=== PATIENT | female | born 1950 | race Two or more races ===

== ENCOUNTER 2016-11-20 13:02 | Emergency (ER) | payer OTHER ==
[~2016-11-20] VITALS: Ht 154.9 cm; Wt 72.6 kg
[2016-11-20 14:53] VITALS: BP 148/66
[2016-11-20] MEDS ORDERED: methylPREDNISolone SOD SUCC 125 MG/2 ML VL IM ONE (15:15)
[2016-11-20] MEDS ORDERED: KETOROLAC TROMETH 60MG/2ML VIAL IM ONE (15:15)
== END 2016-11-20 16:04 | disposition home or self-care (01) ==
LOC: ER 13:04
DX: M17.12 Unilateral primary osteoarthritis, left knee (principal); E11.9 Type 2 diabetes mellitus without complications; I10 Essential (primary) hypertension
CPT/HCPCS: 96372; 99284; J1885; J2930

== ENCOUNTER 2016-12-21 11:37 | Emergency (ER) | payer OTHER ==
[~2016-12-21 11:37] MED LIST: ASPI325T4 PO; FLUT0.0535 NAS; GLIP-115 PO; LISI10TA6 PO; METF-312 PO; SIMV10TA84 PO
[2016-12-21 12:08] LABS: Basophils # (auto) 0 uL; Basophils % (auto) 0.3 % (0.0-2.0); Eosinophils # (auto) 0 uL; Eosinophils % (auto) 0.3 % (0.0-7.0); Hematocrit 35.4 % (36.0-46.0); Hemoglobin 11.6 g/dL (12.2-16.2); Lymphocytes # (auto) 1.5 uL; Lymphocytes % (auto) 10.8 % (10.0-50.0); Mean Corpuscular Hemoglobin 28.6 pg (28.0-32.0); Mean Corpuscular Hgb Conc. 32.7 g/dL (32.0-36.0); Mean Corpuscular Volume 87.5 fL (80.0-100.0); Mean Platelet Volume 10.7 fL (7.4-10.4); Monocytes # (auto) 0.7 uL; Monocytes % (auto) 4.9 % (0.0-12.0); Neutrophils % (auto) 83.7 % (37.0-80.0); Platelet Count (auto) 234 10^3/uL (140-450); Red Cell Distribution Width 12.9 % (11.6-16.0); SUSPECT VIEW TRANSMISSION; White Blood Cell 14.3 10^3/uL (4.4-10.8)
[2016-12-21] MEDS ORDERED: ASPirin 81 mg TAB PO ONE (12:30)
[2016-12-21 12:31] LABS: Albumin 3.6 g/dL (3.4-5.0); Alkaline Phosphatase 96 U/L (45-117); Anion Gap 12 (5-15); Aspartate Aminotransferase 22 U/L (15-37); BUN/Creatinine Ratio 43.5; Bilirubin, Total 0.5 mg/dL (0.2-1.0); Blood Urea Nitrogen 40 mg/dL (7-18); Calcium 8.4 mg/dL (8.5-10.1); Carbon Dioxide 19 mmol/L (21-32); Chloride 106 mmol/L (98-107); GFR African American 78 mL/min; GFR Non-African American 65 mL/min; Glucose 136 mg/dL (74-106); Magnesium 1.7 mg/dL (1.6-2.6); Potassium 4.1 mmol/L (3.5-5.1); Sodium 137 mmol/L (136-145); Total Protein 6.9 g/dL (6.4-8.2)
[2016-12-21] MEDS ORDERED: cefTRIAXone 1GM/50ML D5W 50 ML IV ONE (15:00)
[2016-12-21 16:55] VITALS: BP 112/64
[2016-12-24] MEDS ORDERED: GLIP-115 PO (16:15)
[2016-12-24] MEDS ORDERED: FAM20T PO (16:15)
== END 2016-12-21 18:08 | disposition home or self-care (01) ==
LOC: ER 11:39
DX: R07.89 Other chest pain (principal); J40 Bronchitis, not specified as acute or chronic; I11.0 Hypertensive heart disease with heart failure; I50.9 Heart failure, unspecified; E78.5 Hyperlipidemia, unspecified; E11.9 Type 2 diabetes mellitus without complications
CPT/HCPCS: 36415; 71020; 80053; 83735; 84484; 85025; 93005; 96365; 99285; J0696

== ENCOUNTER → 2017-04-15 | Outpatient (CLI) | payer OTHER ==
[~2017-04-15] MED LIST changes: -ASPI325T4 PO; +FAM20T PO; -METF-312 PO; +METF-370 PO; -SIMV10TA84 PO
[2017-04-15 10:19] LABS: Basophils # (auto) 0 uL; Basophils % (auto) 0.4 % (0.0-2.0); Eosinophils # (auto) 0.1 uL; Eosinophils % (auto) 2.3 % (0.0-7.0); Hemoglobin 13.7 g/dL (12.2-16.2); Lymphocytes # (auto) 1.2 uL; Lymphocytes % (auto) 19.7 % (10.0-50.0); Mean Corpuscular Hgb Conc. 34.3 g/dL (32.0-36.0); Mean Corpuscular Volume 84.8 fL (80.0-100.0); Mean Platelet Volume 11.5 fL (7.4-10.4); Monocytes # (auto) 0.3 uL; Neutrophils # (auto) 4.5 uL; Neutrophils % (auto) 72.6 % (37.0-80.0); Platelet Count (auto) 151 10^3/uL (140-450); Red Cell Distribution Width 13.8 % (11.6-16.0); White Blood Cell 6.2 10^3/uL (4.4-10.8)
== END | disposition home or self-care (01) ==
LOC: LAB 09:06
PROVIDERS: ATTEND Family Medicine
DX: K92.2 Gastrointestinal hemorrhage, unspecified (principal)
CPT/HCPCS: 36415; 85025

== ENCOUNTER → 2017-05-19 | Outpatient (CLI) | payer OTHER ==
[2017-05-19 11:25] LABS: Basophils # (auto) 0 uL; Basophils % (auto) 0.6 % (0.0-2.0); CONDITION Y; Eosinophils # (auto) 0.1 uL; Eosinophils % (auto) 1.8 % (0.0-7.0); Hematocrit 36.9 % (36.0-46.0); Hemoglobin 12.7 g/dL (12.2-16.2); Lymphocytes # (auto) 1.3 uL; Lymphocytes % (auto) 21.1 % (10.0-50.0); Mean Corpuscular Hemoglobin 29.4 pg (28.0-32.0); Mean Corpuscular Hgb Conc. 34.5 g/dL (32.0-36.0); Mean Corpuscular Volume 85.2 fL (80.0-100.0); Mean Platelet Volume 10.5 fL (7.4-10.4); Monocytes # (auto) 0.4 uL; Monocytes % (auto) 6.3 % (0.0-12.0); Neutrophils # (auto) 4.2 uL; Neutrophils % (auto) 70.2 % (37.0-80.0); Platelet Count (auto) 149 10^3/uL (140-450); Red Cell Distribution Width 14.5 % (11.6-16.0)
[2017-05-19 11:36] LABS: Urine Bilirubin Negative (Negative); Urine Blood Negative /uL (Negative); Urine Color Yellow (Yellow); Urine Glucose Normal (Normal); Urine Ketone Negative (Negative); Urine Nitrite Negative (Negative); Urine RBC 1 /hpf (0 - 4); Urine Squamous Epithelial Cell FEW /hpf (<5); Urine Urobilinogen Normal (Negative)
[2017-05-19 11:41] LABS: Albumin 3.8 g/dL (3.4-5.0); BUN/Creatinine Ratio 16.1; Bilirubin, Total 0.5 mg/dL (0.2-1.0); Calcium 9.2 mg/dL (8.5-10.1); Total Protein 7.4 g/dL (6.4-8.2)
== END | disposition home or self-care (01) ==
LOC: LAB 10:48
PROVIDERS: ATTEND Family Medicine
DX: E11.40 Type 2 diabetes mellitus with diabetic neuropathy, unspecified (principal)
CPT/HCPCS: 36415; 80053; 80061; 81001; 82043; 82306; 82607; 83036; 84443; 85025

== ENCOUNTER 2017-08-30 14:37 | Inpatient (IN) | payer OTHER ==
[~2017-08-30] VITALS: Ht 157.5 cm; Wt 89.0 kg
[2017-08-30 15:17] LABS: Basophils # (auto) 0 uL; Basophils % (auto) 0.5 % (0.0-2.0); Eosinophils # (auto) 0.1 uL; Eosinophils % (auto) 1.7 % (0.0-7.0); Hematocrit 39.6 % (36.0-46.0); Hemoglobin 13.3 g/dL (12.2-16.2); Lymphocytes # (auto) 1.4 uL; Lymphocytes % (auto) 18.7 % (10.0-50.0); Mean Corpuscular Hemoglobin 29.5 pg (28.0-32.0); Mean Corpuscular Hgb Conc. 33.7 g/dL (32.0-36.0); Mean Corpuscular Volume 87.6 fL (80.0-100.0); Monocytes # (auto) 0.4 uL; Monocytes % (auto) 6.2 % (0.0-12.0); Neutrophils # (auto) 5.3 uL; Neutrophils % (auto) 72.9 % (37.0-80.0); Nucleated Red Blood Cells % 0.1 %; Platelet Count (auto) 136 10^3/uL (140-450); Red Blood Cells 4.52 10^6/uL (4.0-5.20); Red Cell Distribution Width 12.7 % (11.8-14.3); White Blood Cell 7.2 10^3/uL (4.4-10.8)
[2017-08-30 15:28] LABS: INR 0.97 (0.9-1.15); Partial Thromboplastin Time 26.3 sec (22.64-33.71); Prothrombin Time 10.6 sec (9.37-12.3)
[2017-08-30 15:51] LABS: Alanine Aminotransferase 47 U/L (13-56); Albumin 4.1 g/dL (3.4-5.0); Alkaline Phosphatase 113 U/L (45-117); Anion Gap 13 (5-15); Aspartate Aminotransferase 25 U/L (15-37); BUN/Creatinine Ratio 14.3; Bilirubin, Total 0.4 mg/dL (0.2-1.0); Blood Urea Nitrogen 13 mg/dL (7-18); Calcium 8.9 mg/dL (8.5-10.1); Carbon Dioxide 21 mmol/L (21-32); Chloride 105 mmol/L (98-107); GFR African American 79 mL/min; GFR Non-African American 65 mL/min; Glucose 190 mg/dL (74-106); Magnesium 1.9 mg/dL (1.6-2.6); Potassium 3.9 mmol/L (3.5-5.1); Sodium 139 mmol/L (136-145); Total Protein 7.9 g/dL (6.4-8.2)
[2017-08-31] MEDS ORDERED: HYDROcodone-ACET 5/325MG TAB PO PRN (06:45)
[2017-08-31] MEDS ORDERED: ACETAMINOPHEN 325 MG TAB PO PRN (06:45)
[2017-08-31] MEDS ORDERED: NITROGLYCERIN 0.4 MG SL TAB SL PRN (06:45)
[2017-08-31] MEDS ORDERED: ONDANSETRON HCL 4 MG/2 ML VIAL IV PRN (06:45)
[2017-08-31] MEDS ORDERED: DOCUSATE SOD 100 MG CAP PO PRN (06:45)
[2017-08-31] MEDS ORDERED: TEMAZEPAM 15 MG CAP PO PRN (06:45)
[2017-08-31] MEDS ORDERED: MORPHINE SULFATE 10 MG/ML INJ 1ML SDV IV PRN (06:45)
[2017-08-31] MEDS ORDERED: DEXTROSE (50%) 50ML SYRG IV PRN (06:45)
[2017-08-31] MEDS: glipiZIDE 5 MG TAB PO SCH ×2 (09:04→17:49)
[2017-08-31 10:25] VITALS: BP 142/76
[2017-08-31 10:48] VITALS: BP 142/76
[2017-08-31] MEDS: ASPirin 81 mg TAB PO SCH (11:59)
[2017-08-31] MEDS: ENOXAPARIN SOD 40 MG/0.4 ML SYRINGE SC SCH (11:59)
[2017-08-31] MEDS: FUROSEMIDE 20 MG TAB PO SCH (12:00)
[2017-08-31] MEDS: CARVEDILOL 3.125 MG TAB PO SCH ×2 (12:00→21:57)
[2017-08-31] MEDS: InsuLIN REG 1unit/0.01ml Soln (100units/ml) SC SCH ×3 (12:00→23:35)
[2017-08-31] MEDS: FAMOTIDINE 20 MG TAB PO SCH ×2 (12:00→21:57)
[2017-08-31] MEDS: ACCU-CHEK COMFORT CURVE STRIP VI SCH ×3 (12:01→23:35)
[2017-08-31] MEDS: LISINOPRIL 10 MG TAB PO SCH (12:01)
[2017-08-31 16:49] VITALS: BP 99/61
[2017-08-31 22:00] VITALS: BP 110/74
[2017-08-31] MEDS ORDERED: ATORVASTATIN 20 MG TAB PO SCH (22:00)
[2017-08-31] MEDS ORDERED: PATIENTS OWN MEDICATION (simvastatin 10 MG) PO SCH (22:00)
[2017-09-01 05:00] VITALS: BP 111/60
[2017-09-01] MEDS: InsuLIN REG 1unit/0.01ml Soln (100units/ml) SC SCH ×2 (06:28→12:00)
[2017-09-01] MEDS: ACCU-CHEK COMFORT CURVE STRIP VI SCH ×2 (06:28→12:00)
[2017-09-01] MEDS: glipiZIDE 5 MG TAB PO SCH (06:28)
[2017-09-01 07:16] LABS: Basophils # (auto) 0 uL; Basophils % (auto) 0.6 % (0.0-2.0); Eosinophils # (auto) 0.1 uL; Eosinophils % (auto) 2.1 % (0.0-7.0); Hematocrit 41.7 % (36.0-46.0); Hemoglobin 14.1 g/dL (12.2-16.2); Lymphocytes # (auto) 1.4 uL; Lymphocytes % (auto) 22.5 % (10.0-50.0); Mean Corpuscular Hemoglobin 29.6 pg (28.0-32.0); Mean Corpuscular Hgb Conc. 33.7 g/dL (32.0-36.0); Mean Corpuscular Volume 87.7 fL (80.0-100.0); Monocytes # (auto) 0.5 uL; Neutrophils # (auto) 4.2 uL; Neutrophils % (auto) 66.8 % (37.0-80.0); Nucleated Red Blood Cells % 0.1 %; Platelet Count (auto) 120 10^3/uL (140-450); Red Blood Cells 4.75 10^6/uL (4.0-5.20); Red Cell Distribution Width 12.8 % (11.8-14.3); White Blood Cell 6.2 10^3/uL (4.4-10.8)
[2017-09-01 07:33] LABS: Alanine Aminotransferase 41 U/L (13-56); Albumin 3.8 g/dL (3.4-5.0); Alkaline Phosphatase 108 U/L (45-117); Anion Gap 10 (5-15); Aspartate Aminotransferase 18 U/L (15-37); BUN/Creatinine Ratio 23.6; Bilirubin, Total 0.6 mg/dL (0.2-1.0); Blood Urea Nitrogen 17 mg/dL (7-18); Carbon Dioxide 22 mmol/L (21-32); Chloride 106 mmol/L (98-107); GFR African American 104 mL/min; GFR Non-African American 86 mL/min; Glucose 134 mg/dL (74-106); Potassium 3.9 mmol/L (3.5-5.1); Sodium 138 mmol/L (136-145); Total Protein 7.7 g/dL (6.4-8.2)
[2017-09-01 09:11] VITALS: BP 128/79
[2017-09-01] MEDS: FUROSEMIDE 20 MG TAB PO SCH (09:55)
[2017-09-01] MEDS: ASPirin 81 mg TAB PO SCH (09:55)
[2017-09-01] MEDS: FAMOTIDINE 20 MG TAB PO SCH (09:55)
[2017-09-01] MEDS: LISINOPRIL 10 MG TAB PO SCH (09:56)
[2017-09-01] MEDS: CARVEDILOL 3.125 MG TAB PO SCH (09:56)
[2017-09-01] MEDS: ENOXAPARIN SOD 40 MG/0.4 ML SYRINGE SC SCH (09:56)
[2017-09-01 12:30] VITALS: BP 128/79
[2017-09-01 14:44] VITALS: BP 128/79
== END 2017-09-01 15:35 | disposition home or self-care (01) | DRG 313 ==
LOC: ER 14:40 → TELE 14:41 → TELE-E-ADS 08-31 09:36 → TELE-WESTW 08-31 11:13
PROVIDERS: ADMIT Nurse Practitioner; ATTEND Internal Medicine
DX: R07.89 Other chest pain (principal); I25.10 Atherosclerotic heart disease of native coronary artery without angina pectoris; D69.6 Thrombocytopenia, unspecified; I11.0 Hypertensive heart disease with heart failure; E11.65 Type 2 diabetes mellitus with hyperglycemia; E66.01 Morbid (severe) obesity due to excess calories; I50.32 Chronic diastolic (congestive) heart failure; E78.00 Pure hypercholesterolemia, unspecified; E78.5 Hyperlipidemia, unspecified; I35.0 Nonrheumatic aortic (valve) stenosis; Z82.49 Family history of ischemic heart disease and other diseases of the circulatory system; Z82.5 Family history of asthma and other chronic lower respiratory diseases; Z91.14 Patient's other noncompliance with medication regimen
CPT/HCPCS: 36415; 70450; 71020; 80053; 82962; 83735; 83880; 84484; 85025; 85379; 85610; 85730; 93005; 93306; J1815

== ENCOUNTER → 2017-11-12 | Outpatient (CLI) | payer OTHER ==
[~2017-11-12] MED LIST changes: +FLUT0.05 NAS; -FLUT0.0535 NAS
[2017-11-12 11:09] LABS: Urine Bacteria NONE SEEN /hpf (None Seen); Urine Blood Negative /uL (Negative); Urine Specific Gravity 1.018 (1.001-1.035); Urine WBC 1 /hpf (0 - 5)
[2017-11-12 11:10] LABS: Basophils # (auto) 0 uL; Basophils % (auto) 0.6 % (0.0-2.0); Eosinophils # (auto) 0.1 uL; Eosinophils % (auto) 1.5 % (0.0-7.0); Hematocrit 40.3 % (36.0-46.0); Hemoglobin 13.7 g/dL (12.2-16.2); Lymphocytes # (auto) 1.5 uL; Lymphocytes % (auto) 20.7 % (10.0-50.0); Mean Corpuscular Hemoglobin 29.8 pg (28.0-32.0); Mean Corpuscular Hgb Conc. 34.1 g/dL (32.0-36.0); Mean Corpuscular Volume 87.5 fL (80.0-100.0); Monocytes # (auto) 0.4 uL; Monocytes % (auto) 6.1 % (0.0-12.0); Neutrophils # (auto) 5.2 uL; Neutrophils % (auto) 71.1 % (37.0-80.0); Nucleated Red Blood Cells % 0.1 %; Platelet Count (auto) 137 10^3/uL (140-450); White Blood Cell 7.3 10^3/uL (4.4-10.8)
[2017-11-12 12:06] LABS: Albumin 4.2 g/dL (3.4-5.0); BUN/Creatinine Ratio 22.4; Bilirubin, Total 0.5 mg/dL (0.2-1.0); Calcium 8.9 mg/dL (8.5-10.1); Total Protein 7.9 g/dL (6.4-8.2)
== END | disposition home or self-care (01) ==
LOC: LAB 10:37
PROVIDERS: ATTEND Nurse Practitioner
DX: I10 Essential (primary) hypertension (principal); E11.9 Type 2 diabetes mellitus without complications; E78.5 Hyperlipidemia, unspecified
CPT/HCPCS: 36415; 80053; 80061; 81001; 82043; 83036; 84443; 85025

== ENCOUNTER → 2018-02-10 | Outpatient (CLI) | payer OTHER | END | disposition home or self-care (01) | LOC: LAB 09:23 | PROVIDERS: ATTEND Nurse Practitioner | DX: Z12.11 Encounter for screening for malignant neoplasm of colon (principal); E11.9 Type 2 diabetes mellitus without complications; E78.5 Hyperlipidemia, unspecified; E78.00 Pure hypercholesterolemia, unspecified | CPT/HCPCS: 36415; 80156; 85652; 86431 ==

== ENCOUNTER 2018-06-28 11:47 | Inpatient (IN) | payer OTHER ==
[~2018-06-28] VITALS: Ht 160 cm; Wt 84.0 kg
[2018-06-28 12:41] LABS: Urine Bacteria NONE SEEN /hpf (None Seen); Urine Blood Negative /uL (Negative); Urine Mucus FEW (None Seen); Urine Specific Gravity 1.002 (1.001-1.035); Urine WBC <1 /hpf (0 - 5)
[2018-06-28 13:43] LABS: Basophils # (auto) 0.1 uL; Basophils % (auto) 0.6 % (0.0-2.0); Eosinophils # (auto) 0.2 uL; Eosinophils % (auto) 1.7 % (0.0-7.0); Hematocrit 39.8 % (36.0-46.0); Hemoglobin 13.5 g/dL (12.2-16.2); Lymphocytes # (auto) 1.5 uL; Lymphocytes % (auto) 16.7 % (10.0-50.0); Mean Corpuscular Hemoglobin 29.4 pg (28.0-32.0); Mean Corpuscular Volume 86.4 fL (80.0-100.0); Monocytes # (auto) 0.5 uL; Monocytes % (auto) 5.2 % (0.0-12.0); Neutrophils # (auto) 6.8 uL; Neutrophils % (auto) 75.8 % (37.0-80.0); Nucleated Red Blood Cells % 0.1 %; Platelet Count (auto) 151 10^3/uL (140-450); Red Blood Cells 4.61 10^6/uL (4.0-5.20); Red Cell Distribution Width 13.2 % (11.8-14.3)
[2018-06-28 14:01] LABS: Alanine Aminotransferase 53 U/L (13-56); Albumin 4.1 g/dL (3.4-5.0); Anion Gap 11 (5-15); Aspartate Aminotransferase 22 U/L (15-37); Blood Urea Nitrogen 12 mg/dL (7-18); Carbon Dioxide 21 mmol/L (21-32); Chloride 104 mmol/L (98-107); GFR African American 99 mL/min; GFR Non-African American 81 mL/min; Glucose 110 mg/dL (74-106); Potassium 4.1 mmol/L (3.5-5.1); Sodium 136 mmol/L (136-145)
[2018-06-28 14:07] LABS: Alkaline Phosphatase 82 U/L (45-117); Bilirubin, Total 0.7 mg/dL (0.2-1.0); Total Protein 7.8 g/dL (6.4-8.2)
[2018-06-28] MEDS ORDERED: SODIUM CHLORIDE 0.9% 1,000 ML IVB ONE (16:06)
[2018-06-28 16:48] LABS: INR 0.94 (0.9-1.15); Partial Thromboplastin Time 27.1 sec (23.78-33.04); Prothrombin Time 10.1 sec (9.27-12.13)
[2018-06-28 16:50] LABS: Magnesium 1.7 mg/dL (1.6-2.6)
[2018-06-28] MEDS ORDERED: TEMAZEPAM 15 MG CAP PO PRN (20:45)
[2018-06-28] MEDS ORDERED: ACETAMINOPHEN 325 MG TAB PO PRN (20:45)
[2018-06-28] MEDS ORDERED: ONDANSETRON HCL 4 MG/2 ML VIAL IV PRN (20:45)
[2018-06-28] MEDS ORDERED: HYDROcodone-ACET 5/325MG TAB PO PRN (20:45)
[2018-06-28] MEDS ORDERED: PATIENTS OWN MEDICATION (simvastatin 10 MG) PO SCH (22:00)
[2018-06-28] MEDS: CARVEDILOL 3.125 MG TAB PO SCH (22:45)
[2018-06-28] MEDS: FAMOTIDINE 20 MG TAB PO SCH (22:45)
[2018-06-28] MEDS: MONTELUKAST SODIUM 10 MG TAB PO SCH (22:46)
[2018-06-29] VITALS (7 sets, daily range): BP systolic 112–131; BP diastolic 69–81
[2018-06-29] MEDS: glipiZIDE 5 MG TAB PO SCH ×2 (06:57→17:26)
[2018-06-29] MEDS: CARVEDILOL 3.125 MG TAB PO SCH ×2 (08:40→17:26)
[2018-06-29] MEDS ORDERED: ASPI81CH43 GT (08:42)
[2018-06-29] MEDS ORDERED: FURO40TA4 PO (08:44)
[2018-06-29] MEDS ORDERED: PNEUMOCOCCAL VACC POLYS 25 MCG/0.5 ML VIAL IM ONE (08:45)
[2018-06-29] MEDS ORDERED: METF-370 PO (08:47)
[2018-06-29] MEDS ORDERED: CAR3125T PO (08:52)
[2018-06-29] MEDS ORDERED: [UNRECOGNIZED DRUG - CODE] PO (08:54)
[2018-06-29] MEDS ORDERED: SIMV10TA84 PO (08:55)
[2018-06-29] MEDS ORDERED: ASP81EC PO (08:56)
[2018-06-29] MEDS: FAMOTIDINE 20 MG TAB PO SCH (10:00)
[2018-06-29] MEDS: LISINOPRIL 10 MG TAB PO SCH (10:44)
[2018-06-29] MEDS: FUROSEMIDE 20 MG TAB PO SCH (10:44)
[2018-06-29 11:01] LABS: Basophils # (auto) 0 uL; Basophils % (auto) 0.4 % (0.0-2.0); Eosinophils # (auto) 0.1 uL; Eosinophils % (auto) 1.4 % (0.0-7.0); Hematocrit 37.6 % (36.0-46.0); Hemoglobin 13.1 g/dL (12.2-16.2); Lymphocytes # (auto) 1.1 uL; Lymphocytes % (auto) 16.5 % (10.0-50.0); Mean Corpuscular Hemoglobin 30.7 pg (28.0-32.0); Mean Corpuscular Hgb Conc. 34.8 g/dL (32.0-36.0); Mean Corpuscular Volume 88.2 fL (80.0-100.0); Monocytes # (auto) 0.4 uL; Monocytes % (auto) 6.2 % (0.0-12.0); Neutrophils # (auto) 5.1 uL; Neutrophils % (auto) 75.5 % (37.0-80.0); Platelet Count (auto) 136 10^3/uL (140-450); Red Blood Cells 4.26 10^6/uL (4.0-5.20); Red Cell Distribution Width 13.1 % (11.8-14.3); White Blood Cell 6.8 10^3/uL (4.4-10.8)
[2018-06-29 11:18] LABS: Albumin 3.8 g/dL (3.4-5.0); BUN/Creatinine Ratio 12.8; Bilirubin, Total 0.7 mg/dL (0.2-1.0); Calcium 8.8 mg/dL (8.5-10.1); Potassium 3.8 mmol/L (3.5-5.1); Total Protein 7.4 g/dL (6.4-8.2)
[2018-06-29] MEDS ORDERED: GLIP-110 PO (15:29)
[2018-06-29] MEDS ORDERED: METF-929 PO (15:33)
[2018-06-29] MEDS ORDERED: POTA20TA53 PO (15:37)
[2018-06-29] MEDS ORDERED: BACL10TA PO (15:38)
[2018-06-29] MEDS ORDERED: PRAVASTATIN SODIUM 20 MG TAB PO SCH (22:00)
[2018-06-29] MEDS: MONTELUKAST SODIUM 10 MG TAB PO SCH (22:04)
[2018-06-29] MEDS: PANTOPRAZOLE 40 MG TAB PO SCH (22:04)
[2018-06-30 05:00] VITALS: BP 110/72
[2018-06-30] MEDS: glipiZIDE 5 MG TAB PO SCH ×2 (06:27→17:00)
[2018-06-30] MEDS: CARVEDILOL 3.125 MG TAB PO SCH (08:00)
[2018-06-30 08:27] VITALS: BP_SYST 86; BP_SYST 98; BP_DIAS 45; BP_DIAS 58
[2018-06-30] MEDS: LISINOPRIL 10 MG TAB PO SCH (10:00)
[2018-06-30] MEDS: PANTOPRAZOLE 40 MG TAB PO SCH (10:00)
[2018-06-30] MEDS: FUROSEMIDE 20 MG TAB PO SCH (10:00)
[2018-06-30] MEDS ORDERED: LIDOCAINE VISCOUS 2% 15ML UD ONE (10:46)
[2018-06-30] MEDS ORDERED: SODIUM CHLORIDE LOCK 10 ML ONE (10:46)
[2018-06-30] MEDS: fentaNYL CITRATE 100 MCG/2 ML VL ONE ×2 (11:23→12:30)
[2018-06-30] MEDS: MIDAZOLAM HCL 5 MG/ML-1ML VIAL ONE ×2 (12:30→12:34)
[2018-06-30 13:00] VITALS: BP 122/63
[2018-06-30 15:45] VITALS: BP 97/60
[2018-06-30 17:00] VITALS: BP 114/68
== END 2018-06-30 17:20 | disposition home or self-care (01) | DRG 384 ==
LOC: ER 11:47 → OVERFLOW 11:48 → WEST WING 06-29 04:55
PROVIDERS: ADMIT Nurse Practitioner; ATTEND Family Medicine
PROC: 0DB68ZX Excision of Stomach, Via Natural or Artificial Opening Endoscopic, Diagnostic (ICD-10-PCS; principal; 2018-06-30 12:24)
DX: K25.9 Gastric ulcer, unspecified as acute or chronic, without hemorrhage or perforation (principal); K80.20 Calculus of gallbladder without cholecystitis without obstruction; I10 Essential (primary) hypertension; E11.9 Type 2 diabetes mellitus without complications; D18.09 Hemangioma of other sites; E78.00 Pure hypercholesterolemia, unspecified; E78.5 Hyperlipidemia, unspecified; J45.909 Unspecified asthma, uncomplicated; K29.90 Gastroduodenitis, unspecified, without bleeding; K57.30 Diverticulosis of large intestine without perforation or abscess without bleeding; M43.16 Spondylolisthesis, lumbar region; M51.36 Other intervertebral disc degeneration, lumbar region; M51.37 Other intervertebral disc degeneration, lumbosacral region; M85.80 Other specified disorders of bone density and structure, unspecified site; Z23 Encounter for immunization; Z82.49 Family history of ischemic heart disease and other diseases of the circulatory system; Z82.5 Family history of asthma and other chronic lower respiratory diseases; Z88.0 Allergy status to penicillin; Z79.84 Long term (current) use of oral hypoglycemic drugs
CPT/HCPCS: 36415; 43239; 70450; 71045; 74176; 80053; 81001; 82150; 82962; 83690; 83735; 84484; 85025; 85610; 85730; 86850; 86900; 86901; 93005; 94761; 96360; 96372; A6257; J2250

== ENCOUNTER → 2018-07-13 | Outpatient (CLI) | payer OTHER ==
[~2018-07-13] MED LIST changes: +ASP81EC PO; +BACL10TA PO; +CAR3125T PO; +FURO40TA4 PO; +GLIP-110 PO; -GLIP-115 PO; -METF-370 PO; +METF-929 PO; +POTA20TA53 PO; +SIMV10TA84 PO
[2018-07-13 09:31] LABS: Urine Bacteria FEW /hpf (None Seen); Urine Blood Negative /uL (Negative); Urine Specific Gravity 1.017 (1.001-1.035); Urine WBC 4 /hpf (0 - 5)
[2018-07-13 09:51] LABS: Basophils # (auto) 0 uL; Basophils % (auto) 0.6 % (0.0-2.0); Eosinophils # (auto) 0.1 uL; Eosinophils % (auto) 1.6 % (0.0-7.0); Hematocrit 39.5 % (36.0-46.0); Hemoglobin 13.2 g/dL (12.2-16.2); Lymphocytes # (auto) 1.6 uL; Lymphocytes % (auto) 26.3 % (10.0-50.0); Mean Corpuscular Hemoglobin 29.5 pg (28.0-32.0); Mean Corpuscular Hgb Conc. 33.5 g/dL (32.0-36.0); Monocytes # (auto) 0.5 uL; Monocytes % (auto) 7.5 % (0.0-12.0); Platelet Count (auto) 145 10^3/uL (140-450); Red Blood Cells 4.48 10^6/uL (4.0-5.20); Red Cell Distribution Width 13.2 % (11.8-14.3); White Blood Cell 6.2 10^3/uL (4.4-10.8)
[2018-07-13 09:54] LABS: Albumin 3.9 g/dL (3.4-5.0); BUN/Creatinine Ratio 31.6; Bilirubin, Total 0.6 mg/dL (0.2-1.0); Calcium 9.2 mg/dL (8.5-10.1); Potassium 4.1 mmol/L (3.5-5.1); Total Protein 7.8 g/dL (6.4-8.2)
== END | disposition home or self-care (01) ==
LOC: LAB 09:01
PROVIDERS: ATTEND Nurse Practitioner
DX: E11.49 Type 2 diabetes mellitus with other diabetic neurological complication (principal); E78.5 Hyperlipidemia, unspecified; I10 Essential (primary) hypertension
CPT/HCPCS: 36415; 80053; 80061; 81001; 82043; 83036; 85025

== ENCOUNTER → 2019-01-20 | Outpatient (CLI) | payer OTHER ==
[2019-01-20 10:59] LABS: Basophils # (auto) 0 uL; Basophils % (auto) 0.5 % (0.0-2.0); Eosinophils # (auto) 0.1 uL; Eosinophils % (auto) 2.6 % (0.0-7.0); Hemoglobin 13.2 g/dL (12.2-16.2); Lymphocytes # (auto) 1.2 uL; Lymphocytes % (auto) 20.8 % (10.0-50.0); Mean Corpuscular Hemoglobin 29.1 pg (28.0-32.0); Mean Corpuscular Hgb Conc. 33.8 g/dL (32.0-36.0); Mean Corpuscular Volume 86.1 fL (80.0-100.0); Monocytes # (auto) 0.4 uL; Monocytes % (auto) 6.9 % (0.0-12.0); Neutrophils # (auto) 3.9 uL; Neutrophils % (auto) 69.2 % (37.0-80.0); Platelet Count (auto) 108 10^3/uL (140-450); Red Blood Cells 4.53 10^6/uL (4.0-5.20); Red Cell Distribution Width 13.2 % (11.8-14.3); White Blood Cell 5.6 10^3/uL (4.4-10.8)
[2019-01-20 11:44] LABS: Potassium 4.2 mmol/L (3.5-5.1)
[2019-01-20 11:52] LABS: Urine Bacteria NONE SEEN /hpf (None Seen); Urine Blood Negative /uL (Negative); Urine WBC 1 /hpf (0 - 5)
[2019-01-20 11:55] LABS: Albumin 3.9 g/dL (3.4-5.0); BUN/Creatinine Ratio 17.1; Bilirubin, Total 0.6 mg/dL (0.2-1.0); Calcium 9.1 mg/dL (8.5-10.1); Total Protein 7.6 g/dL (6.4-8.2)
== END | disposition home or self-care (01) ==
LOC: LAB 09:53
PROVIDERS: ATTEND Nurse Practitioner
DX: E11.40 Type 2 diabetes mellitus with diabetic neuropathy, unspecified (principal); E78.5 Hyperlipidemia, unspecified; I11.0 Hypertensive heart disease with heart failure; I50.9 Heart failure, unspecified; Z79.899 Other long term (current) drug therapy
CPT/HCPCS: 36415; 80053; 80061; 81001; 82043; 82270; 82306; 83036; 84443; 85025

== ENCOUNTER → 2019-01-28 | Outpatient (CLI) | payer OTHER | END | disposition home or self-care (01) | LOC: LAB 12:59 | PROVIDERS: ATTEND Nurse Practitioner | DX: E78.5 Hyperlipidemia, unspecified (principal); E11.40 Type 2 diabetes mellitus with diabetic neuropathy, unspecified; I11.0 Hypertensive heart disease with heart failure; I50.9 Heart failure, unspecified | CPT/HCPCS: 82270 ==

== ENCOUNTER → 2019-04-20 | Outpatient (CLI) | payer OTHER ==
[2019-04-20 11:52] LABS: Basophils # (auto) 0.1 uL; Eosinophils # (auto) 0.1 uL; Eosinophils % (auto) 1.2 % (0.0-7.0); Hematocrit 40.9 % (36.0-46.0); Hemoglobin 13.6 g/dL (12.2-16.2); Lymphocytes # (auto) 1.4 uL; Lymphocytes % (auto) 21.8 % (10.0-50.0); Mean Corpuscular Hemoglobin 29.5 pg (28.0-32.0); Mean Corpuscular Hgb Conc. 33.4 g/dL (32.0-36.0); Mean Corpuscular Volume 88.4 fL (80.0-100.0); Monocytes # (auto) 0.5 uL; Monocytes % (auto) 7.3 % (0.0-12.0); Neutrophils # (auto) 4.4 uL; Neutrophils % (auto) 68.7 % (37.0-80.0); Nucleated Red Blood Cells % 0.1 %; Platelet Count (auto) 139 10^3/uL (140-450); Red Blood Cells 4.63 10^6/uL (4.0-5.20); Red Cell Distribution Width 12.7 % (11.8-14.3); White Blood Cell 6.3 10^3/uL (4.4-10.8)
[2019-04-20 13:29] LABS: Potassium 4.1 mmol/L (3.5-5.1)
[2019-04-20 13:45] LABS: Albumin 4.1 g/dL (3.4-5.0); BUN/Creatinine Ratio 18.6; Bilirubin, Total 0.6 mg/dL (0.2-1.0); Calcium 9.5 mg/dL (8.5-10.1); Total Protein 7.9 g/dL (6.4-8.2)
[2019-04-20 13:46] LABS: Urine Bacteria FEW /hpf (None Seen); Urine Blood Negative /uL (Negative); Urine Specific Gravity 1.015 (1.001-1.035); Urine WBC 1 /hpf (0 - 5)
== END | disposition home or self-care (01) ==
LOC: LAB 11:08
PROVIDERS: ATTEND Nurse Practitioner
DX: E78.5 Hyperlipidemia, unspecified (principal); E11.9 Type 2 diabetes mellitus without complications; I10 Essential (primary) hypertension
CPT/HCPCS: 36415; 80053; 80061; 81001; 82043; 83036; 84443; 85025

== ENCOUNTER → 2019-09-14 | Outpatient (CLI) | payer OTHER ==
[~2019-09-14] MED LIST changes: +POTA-220 PO; -POTA20TA53 PO
[2019-09-14 09:57] LABS: Basophils # (auto) 0 uL; Basophils % (auto) 0.5 % (0.0-2.0); Eosinophils # (auto) 0.2 uL; Hematocrit 37.5 % (36.0-46.0); Hemoglobin 12.9 g/dL (12.2-16.2); Lymphocytes # (auto) 1.1 uL; Lymphocytes % (auto) 22.3 % (10.0-50.0); Mean Corpuscular Hemoglobin 30.4 pg (28.0-32.0); Mean Corpuscular Hgb Conc. 34.4 g/dL (32.0-36.0); Mean Corpuscular Volume 88.3 fL (80.0-100.0); Monocytes # (auto) 0.4 uL; Neutrophils # (auto) 3.4 uL; Neutrophils % (auto) 67.2 % (37.0-80.0); Nucleated Red Blood Cells % 0.1 %; Platelet Count (auto) 112 10^3/uL (140-450); Red Blood Cells 4.25 10^6/uL (4.0-5.20); Red Cell Distribution Width 13.1 % (11.8-14.3); White Blood Cell 5.1 10^3/uL (4.4-10.8)
[2019-09-14 09:59] LABS: Urine Bacteria NONE SEEN /hpf (None Seen); Urine Blood Negative /uL (Negative); Urine Mucus FEW (None Seen); Urine Specific Gravity 1.012 (1.001-1.035); Urine WBC 2 /hpf (0 - 5)
[2019-09-14 10:17] LABS: Albumin 3.9 g/dL (3.4-5.0); Potassium 4.1 mmol/L (3.5-5.1)
[2019-09-14 10:23] LABS: BUN/Creatinine Ratio 18.8; Bilirubin, Total 0.3 mg/dL (0.2-1.0); Total Protein 7.3 g/dL (6.4-8.2)
== END | disposition home or self-care (01) ==
LOC: LAB 09:23
PROVIDERS: ATTEND Nurse Practitioner
DX: E78.5 Hyperlipidemia, unspecified (principal); E11.9 Type 2 diabetes mellitus without complications; I11.0 Hypertensive heart disease with heart failure; I50.9 Heart failure, unspecified; F41.9 Anxiety disorder, unspecified; Z88.0 Allergy status to penicillin; Z98.890 Other specified postprocedural states
CPT/HCPCS: 36415; 80053; 80061; 81001; 82043; 83036; 84443; 85025

== ENCOUNTER → 2019-10-04 | Outpatient (CLI) | payer OTHER ==
[2019-10-04 09:52] LABS: Basophils # (auto) 0 uL; Basophils % (auto) 0.7 % (0.0-2.0); Eosinophils # (auto) 0.2 uL; Eosinophils % (auto) 2.8 % (0.0-7.0); Hematocrit 37.6 % (36.0-46.0); Hemoglobin 12.8 g/dL (12.2-16.2); Lymphocytes # (auto) 1.2 uL; Lymphocytes % (auto) 21.8 % (10.0-50.0); Mean Corpuscular Hgb Conc. 33.9 g/dL (32.0-36.0); Mean Corpuscular Volume 88.3 fL (80.0-100.0); Monocytes # (auto) 0.4 uL; Monocytes % (auto) 7.3 % (0.0-12.0); Neutrophils # (auto) 3.9 uL; Neutrophils % (auto) 67.4 % (37.0-80.0); Platelet Count (auto) 128 10^3/uL (140-450); Red Blood Cells 4.26 10^6/uL (4.0-5.20); White Blood Cell 5.7 10^3/uL (4.4-10.8)
[2019-10-04 10:16] LABS: Folate (Folic Acid) 7.94 ng/mL (5.38-24)
[2019-10-04 10:35] LABS: Potassium 3.9 mmol/L (3.5-5.1)
[2019-10-04 10:41] LABS: Urine Bacteria NONE SEEN /hpf (None Seen); Urine Blood Negative /uL (Negative); Urine Specific Gravity 1.015 (1.001-1.035); Urine WBC 1 /hpf (0 - 5)
[2019-10-04 10:50] LABS: Albumin 3.9 g/dL (3.4-5.0); BUN/Creatinine Ratio 17.1; Bilirubin, Total 0.5 mg/dL (0.2-1.0); Calcium 8.6 mg/dL (8.5-10.1); Total Protein 7.5 g/dL (6.4-8.2)
== END | disposition home or self-care (01) ==
LOC: LAB 09:02
PROVIDERS: ATTEND Nurse Practitioner
DX: E11.9 Type 2 diabetes mellitus without complications (principal); E78.5 Hyperlipidemia, unspecified
CPT/HCPCS: 36415; 80053; 80061; 81001; 82043; 82306; 82607; 82746; 83036; 84443; 85025

== ENCOUNTER → 2020-03-28 | Outpatient (CLI) | payer OTHER ==
[2020-03-28 09:24] LABS: Urine WBC None Seen /hpf (0 - 5)
[2020-03-28 09:26] LABS: Basophils # (auto) 0 10 ^3/uL (0-0.2); Basophils % (auto) 0.5 % (0.0-2.0); Eosinophils # (auto) 0.2 10 ^3/uL (0-0.8); Eosinophils % (auto) 3.1 % (0.0-7.0); Hematocrit 38.6 % (36.0-46.0); Hemoglobin 12.9 g/dL (12.2-16.2); Lymphocytes # (auto) 1.2 10 ^3/uL (0.4-5.4); Mean Corpuscular Hemoglobin 29.8 pg (28.0-32.0); Mean Corpuscular Hgb Conc. 33.6 g/dL (32.0-36.0); Mean Corpuscular Volume 88.8 fL (80.0-100.0); Monocytes # (auto) 0.4 10 ^3/uL (0-1.3); Monocytes % (auto) 7.5 % (0.0-12.0); Neutrophils % (auto) 67.9 % (37.0-80.0); Nucleated Red Blood Cells % 0.1 %; Platelet Count (auto) 131 10^3/uL (140-450); Red Blood Cells 4.34 10^6/uL (4.0-5.20); Red Cell Distribution Width 13.3 % (11.8-14.3); White Blood Cell 5.9 10^3/uL (4.4-10.8)
[2020-03-28 09:38] LABS: Urine Bacteria NONE SEEN /hpf (None Seen); Urine Blood Negative /uL (Negative); Urine Hyaline Cast FEW /lpf (0 - 2); Urine Specific Gravity 1.014 (1.001-1.035)
[2020-03-28 10:03] LABS: Albumin 3.9 g/dL (3.4-5.0); Calcium 8.9 mg/dL (8.5-10.1); Potassium 4.1 mmol/L (3.5-5.1)
[2020-03-28 10:10] LABS: BUN/Creatinine Ratio 21.6; Bilirubin, Total 0.5 mg/dL (0.2-1.0); Total Protein 7.7 g/dL (6.4-8.2)
== END | disposition home or self-care (01) ==
LOC: LAB 09:05
PROVIDERS: ATTEND Nurse Practitioner
DX: E78.5 Hyperlipidemia, unspecified (principal); E11.9 Type 2 diabetes mellitus without complications
CPT/HCPCS: 36415; 80053; 80061; 81001; 82043; 83036; 84443; 85025

== ENCOUNTER → 2020-12-26 | Outpatient (CLI) | payer OTHER ==
[~2020-12-26] MED LIST changes: -ASP81EC PO; +ASPI-394 PO; -FAM20T PO; +FAMO20TA10 PO; +LISI-648 PO; -LISI10TA6 PO
[2020-12-26 11:02] LABS: Basophils # (auto) 0.1 10 ^3/uL (0-0.2); Basophils % (auto) 0.8 % (0.0-2.0); Eosinophils # (auto) 0.1 10 ^3/uL (0-0.8); Eosinophils % (auto) 1.7 % (0.0-7.0); Hematocrit 37.3 % (36.0-46.0); Hemoglobin 12.7 g/dL (12.2-16.2); Lymphocytes # (auto) 1.3 10 ^3/uL (0.4-5.4); Lymphocytes % (auto) 19.4 % (10.0-50.0); Mean Corpuscular Hemoglobin 29.8 pg (28.0-32.0); Mean Corpuscular Hgb Conc. 33.9 g/dL (32.0-36.0); Mean Corpuscular Volume 87.8 fL (80.0-100.0); Monocytes # (auto) 0.5 10 ^3/uL (0-1.3); Monocytes % (auto) 6.9 % (0.0-12.0); Neutrophils # (auto) 4.9 10 ^3/uL (1.6-8.6); Neutrophils % (auto) 71.2 % (37.0-80.0); Platelet Count (auto) 140 10^3/uL (140-450); Red Blood Cells 4.25 10^6/uL (4.0-5.20); Red Cell Distribution Width 12.9 % (11.8-14.3); White Blood Cell 6.9 10^3/uL (4.4-10.8)
[2020-12-26 11:26] LABS: Albumin 3.8 g/dL (3.4-5.0)
[2020-12-26 11:28] LABS: Urine Bacteria NONE SEEN /hpf (None Seen); Urine Blood Negative /uL (Negative); Urine Specific Gravity 1.013 (1.001-1.035); Urine WBC <1 /hpf (0 - 5)
[2020-12-26 11:33] LABS: Bilirubin, Total 0.4 mg/dL (0.2-1.0); Total Protein 7.6 g/dL (6.4-8.2)
== END | disposition home or self-care (01) ==
LOC: LAB 10:33
PROVIDERS: ATTEND Nurse Practitioner
DX: I10 Essential (primary) hypertension (principal); E78.5 Hyperlipidemia, unspecified; E11.9 Type 2 diabetes mellitus without complications
CPT/HCPCS: 36415; 80053; 80061; 81001; 82043; 83036; 84443; 85025

== ENCOUNTER → 2021-05-16 | Outpatient (CLI) | payer OTHER ==
[~2021-05-16] MED LIST changes: -LISI-648 PO; +LISI-716 PO
[2021-05-16 13:20] LABS: Urine Bacteria NONE SEEN /hpf (None Seen); Urine Blood Negative /uL (Negative); Urine Specific Gravity 1.016 (1.001-1.035); Urine WBC 2 /hpf (0 - 5)
[2021-05-16 14:02] LABS: Potassium 3.9 mmol/L (3.5-5.1)
[2021-05-16 14:04] LABS: BUN/Creatinine Ratio 16.2
== END | disposition home or self-care (01) ==
LOC: LAB 12:41
PROVIDERS: ATTEND Student in an Organized Health Care Education/Training Program
DX: E11.42 Type 2 diabetes mellitus with diabetic polyneuropathy (principal)
CPT/HCPCS: 36415; 80048; 81001; 83036

== ENCOUNTER → 2021-06-20 | Outpatient (CLI) | payer OTHER ==
[2021-06-20 10:37] LABS: Urine Bacteria NONE SEEN /hpf (None Seen); Urine Blood Negative /uL (Negative); Urine Specific Gravity 1.015 (1.001-1.035); Urine WBC <1 /hpf (0 - 5)
[2021-06-20 11:12] LABS: BUN/Creatinine Ratio 11.3; Potassium 4.2 mmol/L (3.5-5.1)
== END | disposition home or self-care (01) ==
LOC: LAB 09:51
PROVIDERS: ATTEND Student in an Organized Health Care Education/Training Program
DX: E11.9 Type 2 diabetes mellitus without complications (principal); I10 Essential (primary) hypertension
CPT/HCPCS: 36415; 80048; 81001; 83036

== ENCOUNTER → 2021-09-25 | Outpatient (CLI) | payer OTHER ==
[2021-09-25 10:13] LABS: Urine Bacteria NONE SEEN /hpf (None Seen); Urine Blood Negative /uL (Negative); Urine Specific Gravity 1.012 (1.001-1.035); Urine WBC 1 /hpf (0 - 5)
[2021-09-25 11:03] LABS: BUN/Creatinine Ratio 16.7; Potassium 4.2 mmol/L (3.5-5.1)
== END | disposition home or self-care (01) ==
LOC: LAB 09:41
PROVIDERS: ATTEND Student in an Organized Health Care Education/Training Program
DX: E11.9 Type 2 diabetes mellitus without complications (principal); I10 Essential (primary) hypertension
CPT/HCPCS: 36415; 80048; 81001; 83036

== ENCOUNTER → 2021-12-18 | Outpatient (CLI) | payer OTHER ==
[2021-12-18 11:23] LABS: Urine Bacteria NONE SEEN /hpf (None Seen); Urine Blood Negative /uL (Negative); Urine Specific Gravity 1.015 (1.001-1.035); Urine WBC 9 /hpf (0 - 5)
[2021-12-18 12:22] LABS: Basophils # (auto) 0 10 ^3/uL (0-0.2); Basophils % (auto) 0.5 % (0.0-2.0); Eosinophils # (auto) 0.1 10 ^3/uL (0-0.8); Eosinophils % (auto) 2.3 % (0.0-7.0); Hematocrit 39.8 % (36.0-46.0); Hemoglobin 13.5 g/dL (12.2-16.2); Lymphocytes # (auto) 1.2 10 ^3/uL (0.4-5.4); Lymphocytes % (auto) 20.3 % (10.0-50.0); Mean Corpuscular Hemoglobin 29.6 pg (28.0-32.0); Mean Corpuscular Hgb Conc. 33.9 g/dL (32.0-36.0); Mean Corpuscular Volume 87.5 fL (80.0-100.0); Monocytes # (auto) 0.4 10 ^3/uL (0-1.3); Monocytes % (auto) 6.4 % (0.0-12.0); Neutrophils # (auto) 4.2 10 ^3/uL (1.6-8.6); Neutrophils % (auto) 70.5 % (37.0-80.0); Nucleated Red Blood Cells % 0.1 %; Red Blood Cells 4.55 10^6/uL (4.0-5.20); Red Cell Distribution Width 12.5 % (11.8-14.3)
[2021-12-18 12:36] LABS: Albumin 3.9 g/dL (3.4-5.0); Calcium 9.6 mg/dL (8.5-10.1); Potassium 4.3 mmol/L (3.5-5.1)
[2021-12-18 12:44] LABS: BUN/Creatinine Ratio 17.4; Bilirubin, Total 0.5 mg/dL (0.2-1.0); Total Protein 7.7 g/dL (6.4-8.2)
== END | disposition home or self-care (01) ==
LOC: LAB 10:01
PROVIDERS: ATTEND Student in an Organized Health Care Education/Training Program
DX: E11.9 Type 2 diabetes mellitus without complications (principal); I10 Essential (primary) hypertension
CPT/HCPCS: 36415; 80053; 80061; 81001; 82043; 83036; 84443; 85025

== ENCOUNTER → 2022-03-18 | Outpatient (CLI) | payer OTHER ==
[2022-03-18 10:26] LABS: Urine Bacteria NONE SEEN /hpf (None Seen); Urine Blood Negative /uL (Negative); Urine Specific Gravity 1.022 (1.001-1.035); Urine WBC 1 /hpf (0 - 5)
[2022-03-18 10:52] LABS: Potassium 3.9 mmol/L (3.5-5.1)
[2022-03-18 11:22] LABS: BUN/Creatinine Ratio 12.2; Calcium 9.2 mg/dL (8.5-10.1)
== END | disposition home or self-care (01) ==
LOC: LAB 09:51
PROVIDERS: ATTEND Student in an Organized Health Care Education/Training Program
DX: E11.9 Type 2 diabetes mellitus without complications (principal)
CPT/HCPCS: 36415; 80048; 81001; 83036

== ENCOUNTER → 2022-06-24 | Outpatient (CLI) | payer OTHER ==
[2022-06-24 10:41] LABS: Basophils # (auto) 0 10 ^3/uL (0-0.2); Basophils % (auto) 0.7 % (0.0-2.0); Eosinophils # (auto) 0.1 10 ^3/uL (0-0.8); Eosinophils % (auto) 1.8 % (0.0-7.0); Hemoglobin 13.3 g/dL (12.2-16.2); Lymphocytes # (auto) 1.3 10 ^3/uL (0.4-5.4); Lymphocytes % (auto) 19.9 % (10.0-50.0); Mean Corpuscular Hemoglobin 28.8 pg (28.0-32.0); Mean Corpuscular Hgb Conc. 33.3 g/dL (32.0-36.0); Mean Corpuscular Volume 86.5 fL (80.0-100.0); Monocytes # (auto) 0.4 10 ^3/uL (0-1.3); Monocytes % (auto) 6.7 % (0.0-12.0); Neutrophils # (auto) 4.5 10 ^3/uL (1.6-8.6); Neutrophils % (auto) 70.9 % (37.0-80.0); Red Blood Cells 4.63 10^6/uL (4.0-5.20); Red Cell Distribution Width 12.8 % (11.8-14.3); White Blood Cell 6.3 10^3/uL (4.4-10.8)
[2022-06-24 11:11] LABS: Calcium 9.3 mg/dL (8.5-10.1); Potassium 4.5 mmol/L (3.5-5.1)
[2022-06-24 11:14] LABS: BUN/Creatinine Ratio 16.4
[2022-06-24 12:29] LABS: Urine Bacteria NONE SEEN /hpf (None Seen); Urine Blood Negative /uL (Negative); Urine Specific Gravity 1.034 (1.001-1.035); Urine WBC 1 /hpf (0 - 5)
[2022-06-24 12:48] LABS: Creatinine, Urine 66 mg/dL (30.0-125.0)
[2022-06-24 12:59] LABS: Micro Albumin < 5.00 mg/L (0-30.0)
== END | disposition home or self-care (01) ==
LOC: LAB 10:09
PROVIDERS: ATTEND Student in an Organized Health Care Education/Training Program
DX: E11.9 Type 2 diabetes mellitus without complications (principal); I10 Essential (primary) hypertension
CPT/HCPCS: 36415; 80048; 81001; 82043; 82570; 83036; 84443; 85025

== ENCOUNTER → 2022-10-04 | Outpatient (CLI) | payer OTHER ==
[2022-10-04 09:51] LABS: Basophils # (auto) 0 10 ^3/uL (0-0.2); Basophils % (auto) 0.5 % (0.0-2.0); Eosinophils # (auto) 0.2 10 ^3/uL (0-0.8); Eosinophils % (auto) 2.4 % (0.0-7.0); Hematocrit 37.6 % (36.0-46.0); Hemoglobin 12.6 g/dL (12.2-16.2); Lymphocytes # (auto) 1.1 10 ^3/uL (0.4-5.4); Lymphocytes % (auto) 14.7 % (10.0-50.0); Mean Corpuscular Hemoglobin 29.1 pg (28.0-32.0); Mean Corpuscular Hgb Conc. 33.4 g/dL (32.0-36.0); Mean Corpuscular Volume 87.2 fL (80.0-100.0); Monocytes # (auto) 0.4 10 ^3/uL (0-1.3); Monocytes % (auto) 5.8 % (0.0-12.0); Neutrophils # (auto) 5.6 10 ^3/uL (1.6-8.6); Neutrophils % (auto) 76.6 % (37.0-80.0); Red Blood Cells 4.32 10^6/uL (4.0-5.20); Red Cell Distribution Width 12.7 % (11.8-14.3); White Blood Cell 7.3 10^3/uL (4.4-10.8)
[2022-10-04 10:12] LABS: Albumin 3.8 g/dL (3.4-5.0); Calcium 9.5 mg/dL (8.5-10.1); Potassium 3.8 mmol/L (3.5-5.1)
[2022-10-04 10:17] LABS: BUN/Creatinine Ratio 25.3; Bilirubin, Total 0.6 mg/dL (0.2-1.0); Total Protein 7.2 g/dL (6.4-8.2)
[2022-10-04 15:52] LABS: Urine Bacteria NONE SEEN /hpf (None Seen); Urine Blood Negative /uL (Negative); Urine WBC 5 /hpf (0 - 5)
== END | disposition home or self-care (01) ==
LOC: LAB 09:21
PROVIDERS: ATTEND Student in an Organized Health Care Education/Training Program
DX: E11.9 Type 2 diabetes mellitus without complications (principal); I10 Essential (primary) hypertension; N39.0 Urinary tract infection, site not specified
CPT/HCPCS: 36415; 80053; 80061; 81001; 83036; 84443; 85025; 87086

== ENCOUNTER → 2023-03-20 | Outpatient (CLI) | payer OTHER ==
[2023-03-20 10:39] LABS: Basophils # (auto) 0 10 ^3/uL (0-0.2); Basophils % (auto) 0.4 % (0.0-2.0); Eosinophils # (auto) 0.1 10 ^3/uL (0-0.8); Eosinophils % (auto) 2.1 % (0.0-7.0); Hematocrit 38.6 % (36.0-46.0); Hemoglobin 12.7 g/dL (12.2-16.2); Lymphocytes # (auto) 1.3 10 ^3/uL (0.4-5.4); Lymphocytes % (auto) 19.9 % (10.0-50.0); Mean Corpuscular Hemoglobin 28.8 pg (28.0-32.0); Mean Corpuscular Hgb Conc. 32.8 g/dL (32.0-36.0); Mean Corpuscular Volume 87.8 fL (80.0-100.0); Monocytes # (auto) 0.4 10 ^3/uL (0-1.3); Monocytes % (auto) 6.3 % (0.0-12.0); Neutrophils # (auto) 4.7 10 ^3/uL (1.6-8.6); Neutrophils % (auto) 71.3 % (37.0-80.0); Nucleated Red Blood Cells % 0.1 %; Red Cell Distribution Width 13.3 % (11.8-14.3); White Blood Cell 6.5 10^3/uL (4.4-10.8)
[2023-03-20 10:45] LABS: Urine Bacteria NONE SEEN /hpf (None Seen); Urine Blood Negative /uL (Negative); Urine Specific Gravity 1.014 (1.001-1.035); Urine WBC 2 /hpf (0 - 5)
[2023-03-20 11:13] LABS: BUN/Creatinine Ratio 26.9 (10.0-20.0); Calcium 9.5 mg/dL (8.5-10.1); Potassium 4.3 mmol/L (3.5-5.1)
== END | disposition home or self-care (01) ==
LOC: LAB 10:10
PROVIDERS: ATTEND Student in an Organized Health Care Education/Training Program
DX: E11.9 Type 2 diabetes mellitus without complications (principal); I10 Essential (primary) hypertension
CPT/HCPCS: 36415; 80048; 81001; 83036; 85025

== ENCOUNTER → 2023-08-26 | Outpatient (CLI) | payer OTHER ==
[~2023-08-26] MED LIST changes: -LISI-716 PO; +LISI10TA34 PO; +SIMV10TA20 PO; -SIMV10TA84 PO
[2023-08-26 10:52] LABS: Basophils # (auto) 0 10 ^3/uL (0-0.2); Basophils % (auto) 0.8 % (0.0-2.0); Eosinophils # (auto) 0.1 10 ^3/uL (0-0.8); Eosinophils % (auto) 1.7 % (0.0-7.0); Hemoglobin 13.6 g/dL (12.2-16.2); Lymphocytes # (auto) 0.9 10 ^3/uL (0.4-5.4); Lymphocytes % (auto) 20.8 % (10.0-50.0); Mean Corpuscular Hemoglobin 29.4 pg (28.0-32.0); Mean Corpuscular Volume 86.6 fL (80.0-100.0); Monocytes # (auto) 0.5 10 ^3/uL (0-1.3); Monocytes % (auto) 9.9 % (0.0-12.0); Neutrophils % (auto) 66.8 % (37.0-80.0); Red Blood Cells 4.62 10^6/uL (4.0-5.20); Red Cell Distribution Width 12.7 % (11.8-14.3); White Blood Cell 4.6 10^3/uL (4.4-10.8)
[2023-08-26 11:42] LABS: Alanine Aminotransferase 38 U/L (7-40); Albumin 4.7 g/dL (3.2-4.8); Alkaline Phosphatase 104 U/L (46-116); Anion Gap 8 (5-15); Aspartate Aminotransferase 21 U/L (13-40); BUN/Creatinine Ratio 12.9 (10.0-20.0); Blood Urea Nitrogen 12 mg/dL (9-23); Calcium 9.4 mg/dL (8.5-10.1); Carbon Dioxide 24 mmol/L (20-30); Chloride 103 mmol/L (98-107); Glucose 178 mg/dL (74-106); LDL Cholesterol 59 mg/dL (< 100); Potassium 4.2 mmol/L (3.5-5.1); Sodium 135 mmol/L (136-145); Triglycerides 198 mg/dL (< 150)
[2023-08-26 11:43] LABS: Bilirubin, Total 0.7 mg/dL (0.2-1.0); Cholesterol 123 mg/dL (< 200); HDL Cholesterol 42 mg/dL (40-59); Total Protein 7.9 g/dL (5.7-8.2)
[2023-08-26 13:43] LABS: Urine Blood Negative /uL (Negative); Urine Clarity Clear (Clear); Urine Color Yellow (Yellow); Urine Protein, UAD Negative (Negative); Urine Specific Gravity 1.014 (1.001-1.035); Urine Urobilinogen Normal (Negative)
== END | disposition home or self-care (01) ==
LOC: LAB 10:34
DX: I12.9 Hypertensive chronic kidney disease with stage 1 through stage 4 chronic kidney disease, or unspecified chronic kidney disease (principal); E11.22 Type 2 diabetes mellitus with diabetic chronic kidney disease; N18.9 Chronic kidney disease, unspecified
CPT/HCPCS: 36415; 80053; 80061; 81003; 83036; 84439; 84443; 85025

== ENCOUNTER → 2024-06-14 | Outpatient (CLI) | payer OTHER ==
[~2024-06-14] MED LIST changes: -CAR3125T PO; +CARV-214 PO
[2024-06-14 10:25] LABS: Urine Bacteria None Seen /hpf (None Seen)
[2024-06-14 11:03] LABS: Basophils # (auto) 0 10 ^3/uL (0-0.2); Basophils % (auto) 0.6 % (0.0-2.0); Eosinophils # (auto) 0.1 10 ^3/uL (0-0.8); Eosinophils % (auto) 2.1 % (0.0-7.0); Hematocrit 37.7 % (36.0-46.0); Hemoglobin 12.8 g/dL (12.2-16.2); Lymphocytes # (auto) 1.3 10 ^3/uL (0.4-5.4); Mean Corpuscular Hemoglobin 29.8 pg (28.0-32.0); Mean Corpuscular Hgb Conc. 33.9 g/dL (32.0-36.0); Mean Corpuscular Volume 87.9 fL (80.0-100.0); Monocytes # (auto) 0.4 10 ^3/uL (0-1.3); Monocytes % (auto) 6.1 % (0.0-12.0); Neutrophils # (auto) 4.6 10 ^3/uL (1.6-8.6); Neutrophils % (auto) 71.2 % (37.0-80.0); Red Blood Cells 4.29 10^6/uL (4.0-5.20); Red Cell Distribution Width 13.3 % (11.8-14.3); White Blood Cell 6.5 10^3/uL (4.4-10.8)
[2024-06-14 11:13] LABS: Urine Blood Negative /uL (Negative); Urine Clarity Clear (Clear); Urine Color Light-Yellow (Yellow); Urine Protein, UAD Negative (Negative); Urine Specific Gravity 1.015 (1.001-1.035); Urine Urobilinogen Normal (Negative); Urine WBC 1 /hpf (0 - 5); Urine pH 6.5 (5.0-9.0)
[2024-06-14 11:33] LABS: Alanine Aminotransferase 27 U/L (7-40); Albumin 4.2 g/dL (3.2-4.8); Alkaline Phosphatase 93 U/L (46-116); Anion Gap 10 (5-15); Aspartate Aminotransferase 13 U/L (13-40); BUN/Creatinine Ratio 14.8 (10.0-20.0); Bilirubin, Total 0.6 mg/dL (0.2-1.0); Blood Urea Nitrogen 13 mg/dL (9-23); Calcium 9.6 mg/dL (8.7-10.4); Carbon Dioxide 22 mmol/L (20-30); Chloride 106 mmol/L (98-107); Glucose 145 mg/dL (74-106); Potassium 4.1 mmol/L (3.5-5.1); Sodium 138 mmol/L (136-145); Total Protein 7.3 g/dL (5.7-8.2)
== END | disposition home or self-care (01) ==
LOC: LAB 10:05
PROVIDERS: ATTEND Student in an Organized Health Care Education/Training Program
DX: I10 Essential (primary) hypertension (principal); E11.9 Type 2 diabetes mellitus without complications
CPT/HCPCS: 36415; 80053; 81001; 83036; 84443; 85025

== ENCOUNTER 2024-10-12 08:47 | Emergency (ER) | payer OTHER ==
[~2024-10-12] VITALS: Ht 152.4 cm; Wt 81.3 kg
--- NOTE | 2024-10-12 09:23 | ED.PDOC ---
HPI Comments 73 Y M, with PMHX of HTN, DM, HLD, presents to the ED with CC of chest pain. Patient states that she has been experiencing left sided chest pain the is non- radiating since 0500 this morning. Patient states having intermittent dizziness but denies any N/V/D. Patient denies any tobacco usage, ETOH, or illicit drugs. Patient denies fever, chills, cough or body aches. Chief Complaint: Chest Pain Time Seen by MD: 08:30 Primary Care Provider: AMAURY Reviewed Notes: Nurses Notes, Medications, Allergies Allergies: Coded Allergies: Penicillins (Verified Allergy, Unknown, 12/23/16) Home Meds Active Scripts Famotidine (PEPCID TABLET) 20 Mg Tb, 1 TAB PO DAILY, #30 TAB 5 Refills Prov:BASHIR LANG MD 12/24/16 Reported Medications Baclofen (Baclofen) 10 Mg Tab, 10 MG PO DAILY, MG 06/29/18 Potassium Chloride (Klor-Con M20) 20 Meq Tab, 20 MEQ PO, TAB 06/29/18 Metformin HCl (Metformin Hydrochloride) 1,000 Mg Tab, 1000 MG PO BID, TAB 06/29/18 Glipizide (Glipizide Er) 5 Mg Tab, 5 MG PO DAILY, MG 06/29/18 Aspirin (Aspir-Low Ec) 81 Mg Tb, 81 MG PO DAILY 06/29/18 Simvastatin (Simvastatin) 10 Mg Tab, 10 MG PO DAILY 06/29/18 Carvedilol (COREG) 3.125 Mg Tab, 3.125 MG PO BID 06/29/18 Furosemide (Furosemide) 40 Mg Tab, 40 MG PO 06/29/18 Fluticasone Propionate (Fluticasone Propionate) 0.05 % Cre, 50 MCG ROSA DAILY, MCG 12/18/16 Lisinopril (Lisinopril) 10 Mg Tab, 10 MG PO BID, % 12/18/16 Information Source: Patient Mode of Arrival: Ambulatory Severity: Mild Timing: Days Duration: Since onset Prehospital treatment: None Radiation: No Radiation Quality: Pressure Cardiac Risk Factors: None PE Risk Factors: Other History of: None Modifying Factors: Nothing Associated Signs and Symptoms: None Past Medical History PAST MEDICAL HISTORY: DM, High Lipids, HTN Surgical History: Denies all surgeries [employer] History: Denies all [employer] Hx Family History Family History: No family hx of HTN, No family hx of Lung ericka Social History Smoker: Non-Smoker Alcohol: Denies ETOH Use Drugs: Denies Drug Use Lives In: Home Constitutional: denies: chills, diaphoresis, fatigue, fever, malaise, sweats, weakness, others EENTM: denies: blurred vision, double vision, ear bleeding, ear discharge, ear drainage, ear pain, ear ringing, eye pain, eye redness, hearing loss, mouth pain, mouth swelling, nasal discharge, nose bleeding, nose congestion, nose pain, photophobia, tearing, throat pain, throat swelling, voice changes, others Respiratory: denies: cough, hemoptysis, orthopnea, SOB at rest, shortness of breath, SOB with excertion, stridor, wheezing, others Cardiovascular: reports: chest pain; denies: dizzy spells, diaphoresis, Dyspnea on exertion, edema, irregular heart beat, left arm pain, lightheadedness, palpitations, PND, syncope, others Gastrointestinal: denies: abdomen distended, abdominal pain, blood streaked bowels, constipated, diarrhea, dysphagia, difficulty swallowing, hematemesis, melena, nausea, poor appetite, poor fluid intake, rectal bleeding, rectal pain, vomiting, others Genitourinary: denies: abnormal vagina bleeding, burning, dyspareunia, dysuria, flank pain, frequency, hematuria, incontinence, pain, , vagina discharge, urgency, others Neurological: reports: dizziness; denies: fainting, headache, left sided numbness, left sided weakness, numbness, paresthesia, pre-existing deficit, right sided numbness, right sided weakness, seizure, speech problems, tingling, tremors, weakness, others Musculoskeletal: denies: back pain, gout, joint pain, joint swelling, muscle pain, muscle stiffness, neck pain, others Integumetry: denies: bruises, change in color, change in hair/nails, dryness, laceration, lesions, lumps, rash, wounds, others Allergic/Immunocompromised: denies: Difficulty Healing, Frequent Infections, Hives, Itching, others Hematologic/Lymphatic: denies: anemia, blood clots, easy bleeding, easy bruising, swollen glands, others Endocrine: denies: excessive hunger, excessive sweating, excessive thirst, excessive urination, flushing, intolerance to cold, intolerance to heat, unexplained weight gain, unexplained weight loss, others Psychiatric: denies: anxiety, bipolar disorder, depression, hopeless, panic disorder, schizophrenia, sleepless, suicidal, others All Other Systems: Reviewed and Negative Physical Exam General Appearance: Moderate Distress, Normal HEENT: Normal ENT Inspection, Pharynx Normal, TMs Normal Neck: Full Range of Motion, Non-Tender, Normal, Normal Inspection Respiratory: Chest Non-Tender, Lungs Clear, No Accessory Muscle Use, No Respiratory Distress, Normal Breath Sounds Cardiovascular: No Edema, No JVD, No Murmur, No Gallop, Normal Peripheral Pulses, Regular Rate/Rhythm Breast Exam: Deferred Gastrointestinal: No Organomegaly, Non Tender, No Pulsatile Mass, Normal Bowel Sounds, Soft Genitalia: Deferred Pelvic: Deferred Rectal: Deferred Extremities: No calf tenderness, Normal capillary refill, Normal inspection, Normal range of motion, Non-tender, No pedal edema Musculoskeletal : Apperance: Normal Neurologic: Alert, resolution analyst II-XII nml as Tested, No Motor Deficits, Normal Affect, Normal Mood, No Sensory Deficits Cerebellar Function: NOT DONE Reflexes: NOT DONE Skin: Dry, Normal Color, Warm Peripheral Pulses: 3+ Radial (R), 3+ Radial (L) Lymphatic: No Adenopathy EKG EKG : Pulse Rate (adult): 102 [place]: Normal Cardiac Rhythm: ST Block: None Hypertrophy: None ST: Normal Was a procedure done? Was a procedure done?: No CP Differential Dx Differential Diagnosis: A-fib, A-Flutter, Angina, Anxiety / Panic Attack, Atrial Dysrhythmia, Electrolyte Disorder Differential Diagnosis: HTN Accelerated Differential Diagnosis: Costochondritis X-Ray, Labs, Meds, VS Vital Signs Date Time Temp Pulse Resp B/P (MAP) Pulse Ox O2 Delivery O2 Flow Rate FiO2 10/12/24 11:50 103 18 133/92 (106) 95 10/12/24 11:26 102 20 97 Room Air* 0 21 10/12/24 11:25 148/97 10/12/24 11:18 102 16 148/97 (114) 97 10/12/24 09:43 96 10/12/24 09:39 102 10/12/24 08:58 98.1 101 20 135/96 (109) 98 10/12/24 08:54 102 Lab Test 10/12/24 09:50 10/12/24 08:55 Range/Units Troponin I High Sensitivity 5 5 </=34 ng/L White Blood Count 9.5 4.4-10.8 10^3/uL Red Blood Count 4.79 4.0-5.20 10^6/uL Hemoglobin 14.2 12.2-16.2 g/dL Hematocrit 41.6 36.0-46.0 % Mean Corpuscular Volume 87.0 80.0-100.0 fL Mean Corpuscular Hemoglobin 29.7 28.0-32.0 pg Mean Corpuscular Hemoglobin Concent 34.2 32.0-36.0 g/dL Red Cell Distribution Width 12.8 11.8-14.3 % Platelet Count 147 140-450 10^3/uL Mean Platelet Volume 10.4 6.9-10.8 fL Neutrophils (%) (Auto) 77.8 37.0-80.0 % Lymphocytes (%) (Auto) 14.4 10.0-50.0 % Monocytes (%) (Auto) 6.7 0.0-12.0 % Eosinophils (%) (Auto) 0.7 0.0-7.0 % Basophils (%) (Auto) 0.4 0.0-2.0 % Neutrophils # (Auto) 7.4 1.6-8.6 10 ^3/uL Lymphocytes # (Auto) 1.4 0.4-5.4 10 ^3/uL Monocytes # (Auto) 0.6 0-1.3 10 ^3/uL Eosinophils # (Auto) 0.1 0-0.8 10 ^3/uL Basophils # (Auto) 0 0-0.2 10 ^3/uL Nucleated Red Blood Cells 0.0 % Sodium Level 133 L 136-145 mmol/L Potassium Level 3.7 3.5-5.1 mmol/L Chloride Level 101 98-107 mmol/L Carbon Dioxide Level 22 20-31 mmol/L Anion Gap 10 5-15 Blood Urea Nitrogen 22 9-23 mg/dL Creatinine 1.12 H 0.550-1.02 mg/dL Glomerular Filtration Rate Calc 51 >90 mL/min BUN/Creatinine Ratio 19.6 10.0-20.0 Serum Glucose 235 H 74-106 mg/dL Calcium Level 10.6 H 8.7-10.4 mg/dL Current Medications Medications (Trade) Dose Ordered Sig/Leonardo Route Start Time Stop Time Status Last Admin Aspirin 325 mg ONCE ONCE PO 10/12/24 10:45 10/12/24 10:46 DC 10/12/24 11:24 Nitroglycerin (Ntrostat Sublingual) 0.4 mg ONCE ONCE SL 10/12/24 10:45 10/12/24 10:46 DC 10/12/24 11:25 Patient alert. Complaining of chest discomfort. Heart rate within normal limits on clinical examination. Saturation pristine on room air. Blood pressure within normal limits. Cardiac marker within normal limits. EKG reviewed does not show any acute changes. Blood sugar elevated. Hemoglobin within normal limits. Was given aspirin. Explained to the patient. Was told to follow up with her primary care physician. Was told to come back if there is any problem. Time of 1ST Reevaluation: 09:00 Reevaluation 1ST: Improved Time of 2ND Reevaluation: 10:41 Reevaluation 2ND: Improved Patient Education/Counseling: Diagnosis, Treatment Family Education/Counseling: No Family Present Departure 1 Departure Time of Disposition: 17:45 Impression: Primary Impression: Musculoskeletal chest pain Additional Impression: Uncontrolled diabetes mellitus Qualified Codes: E13.65 - Other specified diabetes mellitus with hyperglyc emia Disposition: HOME / SELF CARE / HOMELESS Condition: Good Discharged With: Self Critical Care Note Critical Care Time?: No Stability Stability form required: No Heart Score Heart Score: Heart Score Response (Comments) Value History N/A 0 EKG Normal 0 Age >65 2 Risk Factors >3 or Hx ASHD 2 Troponin Normal limit 0 Total 4 I personally scribed for XIN WATTS MD ([email or web address]) on 10/12/24 at 09:23. Electronically submitted by Joel Hawley ([email or web address]). I personally scribed for XIN WATTS MD ([email or web address]) on 10/12/24 at 09:28. Electronically submitted by Joel Hawley ([email or web address]). I personally scribed for XIN WATTS MD ([email or web address]) on 10/12/24 at 09:39. Electronically submitted by Joel Hawley ([email or web address]). XIN WATTS MD Oct 12, 2024 09:23
[2024-10-12 09:46] LABS: Chloride 101 mmol/L (98-107); Potassium 3.7 mmol/L (3.5-5.1)
[2024-10-12 09:47] LABS: Anion Gap 10 (5-15); Carbon Dioxide 22 mmol/L (20-31)
[2024-10-12 09:48] LABS: Basophils # (auto) 0 10 ^3/uL (0-0.2); Basophils % (auto) 0.4 % (0.0-2.0); Eosinophils # (auto) 0.1 10 ^3/uL (0-0.8); Eosinophils % (auto) 0.7 % (0.0-7.0); Hematocrit 41.6 % (36.0-46.0); Hemoglobin 14.2 g/dL (12.2-16.2); Lymphocytes # (auto) 1.4 10 ^3/uL (0.4-5.4); Lymphocytes % (auto) 14.4 % (10.0-50.0); Mean Corpuscular Hemoglobin 29.7 pg (28.0-32.0); Mean Corpuscular Hgb Conc. 34.2 g/dL (32.0-36.0); Monocytes # (auto) 0.6 10 ^3/uL (0-1.3); Monocytes % (auto) 6.7 % (0.0-12.0); Neutrophils # (auto) 7.4 10 ^3/uL (1.6-8.6); Neutrophils % (auto) 77.8 % (37.0-80.0); Platelet Count (auto) 147 10^3/uL (140-450); Red Blood Cells 4.79 10^6/uL (4.0-5.20); Red Cell Distribution Width 12.8 % (11.8-14.3); White Blood Cell 9.5 10^3/uL (4.4-10.8)
[2024-10-12 09:53] LABS: BUN/Creatinine Ratio 19.6 (10.0-20.0); Blood Urea Nitrogen 22 mg/dL (9-23)
[2024-10-12 09:56] LABS: Calcium 10.6 mg/dL (8.7-10.4); Glucose 235 mg/dL (74-106); Sodium 133 mmol/L (136-145)
[2024-10-12] MEDS: ASPirin 325 MG TAB PO ONE (11:24)
[2024-10-12] MEDS: NITROGLYCERIN 0.4 MG SL TAB SL ONE (11:25)
[2024-10-12 11:26] VITALS: PULSE 102; RESP 20; O2SAT 97
[2024-10-12 11:50] VITALS: BP 133/92; PULSE 103; RESP 18; O2SAT 95
--- NOTE | 2024-10-13 07:30 | ECG ---
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
--- NOTE | 2024-10-13 07:30 | ECG ---
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
== END 2024-10-12 11:50 | disposition home or self-care (01) ==
LOC: ER 08:47
DX: R07.89 Other chest pain (principal); E11.65 Type 2 diabetes mellitus with hyperglycemia; I10 Essential (primary) hypertension; E78.5 Hyperlipidemia, unspecified; Z79.82 Long term (current) use of aspirin; Z79.84 Long term (current) use of oral hypoglycemic drugs; Z79.899 Other long term (current) drug therapy; Z88.0 Allergy status to penicillin
CPT/HCPCS: 36415; 80048; 84484; 85025; 93005

== ENCOUNTER → 2025-02-02 | Outpatient (CLI) | payer OTHER ==
[~2025-02-02] VITALS: Ht 154.9 cm; Wt 83.5 kg
[2025-02-02] MEDS: REGADENOSON 0.4 MG/5 ML SYRG IV ONE ×2 (12:06→12:11)
== END | disposition home or self-care (01) ==
LOC: XYW 10:34
PROVIDERS: ATTEND Internal Medicine
DX: R07.9 Chest pain, unspecified (principal); E11.9 Type 2 diabetes mellitus without complications; I50.9 Heart failure, unspecified; E78.5 Hyperlipidemia, unspecified
CPT/HCPCS: 93017; J2785

== ENCOUNTER 2025-06-20 10:41 | Outpatient (CLI) | payer OTHER ==
[2025-06-20 11:04] LABS: Hematocrit 36.9 % (36.0-46.0); Hemoglobin 13.0 g/dL (12.2-16.2); Mean Corpuscular Hemoglobin 29.7 pg (28.0-32.0); Mean Corpuscular Volume 84.5 fL (80.0-100.0); Nucleated Red Blood Cells % 0.0 %
[2025-06-20 11:56] LABS: Alanine Aminotransferase 24 U/L (7-40); Albumin 4.5 g/dL (3.2-4.8); Alkaline Phosphatase 101 U/L (46-116); Anion Gap 10 (5-15); BUN/Creatinine Ratio 15.1 (10.0-20.0); Bilirubin, Total 0.4 mg/dL (0.2-1.0); Blood Urea Nitrogen 13 mg/dL (9-23); Calcium 9.4 mg/dL (8.7-10.4); Carbon Dioxide 23 mmol/L (20-31); Chloride 101 mmol/L (98-107); Glucose 148 mg/dL (74-106); Potassium 4.4 mmol/L (3.5-5.1); Sodium 134 mmol/L (136-145); Total Protein 7.1 g/dL (5.7-8.2)
[2025-06-20 13:08] LABS: Urine Protein, UAD Negative (Negative)
== END 2025-06-20 17:00 | disposition home or self-care (01) ==
LOC: LAB 10:41
PROVIDERS: ATTEND Student in an Organized Health Care Education/Training Program
DX: I10 Essential (primary) hypertension (principal); E11.9 Type 2 diabetes mellitus without complications
CPT/HCPCS: 36415; 80053; 81001; 83036; 85025

== ENCOUNTER → 2025-08-16 | Outpatient (CLI) | payer OTHER | END | disposition home or self-care (01) | LOC: LAB 11:07 | PROVIDERS: ATTEND Student in an Organized Health Care Education/Training Program | DX: R21 Rash and other nonspecific skin eruption (principal) | CPT/HCPCS: 82785; 86003 ==

== ENCOUNTER → 2025-11-01 | Outpatient (CLI) | payer OTHER ==
[2025-11-01 09:46] LABS: Hematocrit 36.6 % (36.0-46.0); Hemoglobin 12.6 g/dL (12.2-16.2); Mean Corpuscular Hemoglobin 29.7 pg (28.0-32.0); Mean Corpuscular Volume 85.9 fL (80.0-100.0); Nucleated Red Blood Cells % 0.0 %
[2025-11-01 09:51] LABS: Urine Protein, UAD Negative (Negative)
[2025-11-01 10:48] LABS: Alanine Aminotransferase 26 U/L (7-40); Albumin 4.5 g/dL (3.2-4.8); Alkaline Phosphatase 102 U/L (46-116); Anion Gap 12 (5-15); BUN/Creatinine Ratio 14.7 (10.0-20.0); Blood Urea Nitrogen 14 mg/dL (9-23); Calcium 9.7 mg/dL (8.7-10.4); Carbon Dioxide 24 mmol/L (20-31); Chloride 103 mmol/L (98-107); Cholesterol 125 mg/dL (< 200); Potassium 4.0 mmol/L (3.5-5.1); Sodium 139 mmol/L (136-145); Total Protein 7.4 g/dL (5.7-8.2)
[2025-11-01 10:49] LABS: Bilirubin, Total 0.5 mg/dL (0.2-1.0); Glucose 147 mg/dL (74-106); HDL Cholesterol 44 mg/dL (40-59); Microalb/Creat Ratio, Urine 42.0; Triglycerides 183 mg/dL (< 150)
== END | disposition home or self-care (01) ==
LOC: LAB 09:12
PROVIDERS: ATTEND Student in an Organized Health Care Education/Training Program
DX: I11.0 Hypertensive heart disease with heart failure (principal); I50.9 Heart failure, unspecified; E11.9 Type 2 diabetes mellitus without complications; E55.9 Vitamin D deficiency, unspecified
CPT/HCPCS: 36415; 80053; 80061; 81001; 82043; 82306; 82570; 83036; 84443; 85025